=== PATIENT | male | born 1995 | race African-American/Black ===

== ENCOUNTER 2017-01-26 17:07 | Emergency (ER) | payer SELFPAY ==
[2017-01-26] MEDS ORDERED: ACETAMINOPHEN 500 MG TABLET PO ONE (18:15)
[2017-01-26] MEDS ORDERED: IV NORMAL SALINE 1000ML BAG 1,000 ML IV ONE ×2 (18:45)
[2017-01-26 19:31] LABS: BASO % 0 % (0-3); EOS % 1 % (0-3); HEMATOCRIT 43.6 % (39.0-53.0); HEMOGLOBIN 14.5 g/dL (13.0-17.5); LYMPH % 10 % (24-48); MEAN CORPUSCULAR HEMOGLOBIN 29 pg (25-35); MEAN CORPUSCULAR HGB CONC 33 g/dL (31-37); MEAN CORPUSCULAR VOLUME 87 fL (79-100); MONO % 6 % (0-9); NEUT % 83 % (31-73); PLATELET COUNT 176 x10^3/uL (140-400); RED BLOOD COUNT 4.99 x10^6/uL (4.30-5.70); RED CELL DISTRIBUTION WIDTH 14.1 % (11.5-14.5)
[2017-01-26 20:16] LABS: CALCIUM 8.3 mg/dL (8.5-10.1); CREATININE 1.2 mg/dL (0.7-1.3); GFR 90.8; POTASSIUM 3.6 mmol/L (3.5-5.1)
[2017-01-26 21:15] VITALS: BP 122/68
[2017-01-26] MEDS ORDERED: BENZ100C PO (21:20)
[2017-01-26] MEDS ORDERED: PROAIR RESPICL90 MCG IH (21:20)
[2017-01-26] MEDS ORDERED: FLUT9.9S NS (21:21)
[2017-01-26] MEDS ORDERED: PRED50TA PO (21:21)
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
[2017-01-27 07:57] LABS: NEGATIVE OBC STREP NEG; POSITIVE OBC STREP POS
--- NOTE | 2017-01-27 08:31 | RAD ---
Indication cough. Fever. Atraumatic chest pain. PA and lateral views of the chest were obtained. Comparison is made to an exam 10/24/2011. The heart, pulmonary vessels and mediastinum appear normal. The lungs are clear. There is no pleural fluid or pneumothorax. A significant change when compared to the previous exam is not seen. IMPRESSION: Normal two-view examination of the chest
== END 2017-01-26 21:35 | disposition home or self-care (01) ==
LOC: ER 17:07
DX: J06.9 Acute upper respiratory infection, unspecified (principal); J21.8 Acute bronchiolitis due to other specified organisms; J45.909 Unspecified asthma, uncomplicated; F12.10 Cannabis abuse, uncomplicated
CPT/HCPCS: 36415; 71020; 80048; 80320; 85027; 87040; 87070; 87880; 96360; 96361; 99285; J7030; G0480

== ENCOUNTER 2021-01-11 13:53 | Emergency (ER) | payer BC ==
[~2021-01-11] VITALS: Ht 182.9 cm; Wt 54.5 kg
[~2021-01-11 13:53] MED LIST: BENZ100C PO; FLUT9.9S NS; PRED50TA PO; PROAIR RESPICL90 MCG IH
[2021-01-11 15:48] VITALS: BP 137/82
[2021-01-11 16:23] LABS: BILIRUBIN,URINE NEGATIVE (NEG); CLARITY,URINE CLEAR; COLOR,URINE YELLOW; NITRITE,URINE NEGATIVE (NEG); PH,URINE 6.5 (<5.0-8.0); PROTEIN,URINE NEGATIVE (NEG-TRACE)
[2021-01-11 16:30] LABS: BACTERIA,URINE 0 /HPF (0-FEW); WBC,URINE >40 /HPF (0-4)
[2021-01-11 16:31] LABS: RBC,URINE 0 /HPF (0-2)
[2021-01-11] MEDS ORDERED: cefTRIAXone IM 500 MG VIAL. IM ONE (17:00)
[2021-01-11] MEDS ORDERED: DOXY100T PO (17:16)
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
== END 2021-01-11 17:21 | disposition home or self-care (01) ==
LOC: ER 13:53
DX: R30.0 Dysuria (principal); Z20.2 Contact with and (suspected) exposure to infections with a predominantly sexual mode of transmission; J45.909 Unspecified asthma, uncomplicated; F17.200 Nicotine dependence, unspecified, uncomplicated
CPT/HCPCS: 81001; 87086; 87491; 87591; 96372; 99283; J0696